=== PATIENT | female | born 1990 | race Caucasian/White ===

== ENCOUNTER 2017-10-24 11:23 | Outpatient (CLI) | payer BC, OTHER ==
--- NOTE | 2017-10-27 09:19 | Ultrasound Report ---
THYROID ULTRASOUND: 10/24/2017 COMPARISON: No comparison. INDICATION: Hypothyroidism. TECHNIQUE: Real-time scanning of the thyroid was performed with tax compliance representative static images obtained. FINDINGS Right lobe: 6.7 x 2.4 x 2.0 cm. Volume 17 mL. Solid nodule of the upper pole 1.4 x 1.3 x 0.9 cm. Right lobe is hyperemic and heterogeneous. Left lobe: 5.5 x 3.7 x 2.2 cm. Volume 23 mL. Superior pole 1.2 cm solid nodule. Mid-lobe mixed solid cystic nodule 2.3 x 2.1 x 1.8 cm. Lower pole 1.7 cm solid nodule highly vascular. Left lobe is heterogeneous and hyperemic. Isthmus: 1.3 cm and heterogeneous. IMPRESSION 1. THE THYROID IS GROSSLY HETEROGENEOUS AND HYPEREMIC SUGGESTING THYROIDITIS. 2. THERE ARE SEVERAL THYROID NODULES WITH THE LARGEST IN THE LEFT MID LOBE MEASURING UP TO 2.3 CM. TD: 10/27/2017 09:18 JAKE
== END 2017-10-24 11:24 | disposition home or self-care (01) ==
LOC: DI 11:23
PROVIDERS: ATTEND Family Medicine
DX: E04.2 Nontoxic multinodular goiter (principal)
CPT/HCPCS: 76536

== ENCOUNTER 2018-09-24 20:19 | Emergency (ER) | payer OTHER ==
--- NOTE | 2018-09-24 20:51 | ED Physician Documentation ---
PD HPI ABD PAIN - Stated complaint Stated Complaint: POSS MISCARRIAGE - Chief complaint Chief Complaint: Abd Pain - History obtained from History obtained from: Patient - History of Present Illness Timing - onset: Other (This is a at 12 weeks gestation who was having spotting and went attrition on Tuesday for same and was diagnosed with intrauterine demise. She is actually scheduled for a D&C on Tuesday but tonight has had heavy bleeding over the last 3 hours without weakness or lightheadedness. She did pass what she thought was products of conception which what looks like a gestational sac, did not bring it with her to the emergency department.) Review of Systems Constitutional: denies: Fever, Chills Cardiac: denies: Chest pain / pressure, Palpitations Respiratory: denies: Dyspnea, Cough PD PAST MEDICAL HISTORY - Allergies Allergies/Adverse Reactions: Allergies Allergy/AdvReac Type Severity Reaction Status Date / Time No Known Drug Allergies Allergy Verified 09/24/18 20:24 PD ED PE NORMAL - Vitals Vital signs reviewed: Yes - General General: Alert and oriented X 3, No acute distress - Abdomen Abdomen: Normal bowel sounds, Soft, Non tender - Female Female : Merchandise Associate present (Sofie Michelle RN), Other (There is a significant amount of material probably the placenta retained in the cervix which was removed during exam.) - Back Back: No CVA TTP, No spinal TTP - Neuro Neuro: Alert and oriented X 3, Normal speech Results - Vitals Vitals: Vital Signs - 24 hr 09/24/18 09/24/18 20:22 22:07 Temperature 35.6 C L 36.8 C Heart Rate 109 H 88 Respiratory 20 18 Rate Blood Pressure 134/88 H 115/68 O2 Saturation 100 98 Oxygen O2 Source Room air - Labs Labs: Laboratory Tests 09/24/18 09/24/18 09/24/18 21:05 21:05 21:05 WBC 14.7 H RBC 4.59 Hgb 13.0 Hct 41.5 MCV 90.4 MCH 28.4 MCHC 31.4 L RDW 14.2 Plt Count 273 MPV 10.1 Neut # (Auto) 10.0 H Lymph # (Auto) 3.6 H Collin # (Auto) 0.9 Eos # (Auto) 0.2 Baso # (Auto) 0.1 Absolute Nucleated RBC 0.00 Nucleated RBC % 0.0 Serum HCG, Qual POSITIVE HCG, Quant 465.34 PD MEDICAL DECISION MAKING - ED course ED course: After removal of the remainder of products of conception during pelvic examination her bleeding got much less. Departure - Departure Disposition: 01 Home, Self Care Clinical Impression: Miscarriage Condition: Good Record reviewed to determine appropriate education?: Yes Instructions: ED Miscarriage Completed Comments: Talk with your OB tomorrow and return if worse. Your OB may want to know your beta HCg value which was 465 tonight.
[2018-09-24 21:14] LABS: BASOPHILS # (AUTO) 0.1 10^3/uL (0.0-0.1); BASOPHILS % (AUTO) 0.4 %; EOSINOPHILS # (AUTO) 0.2 10^3/uL (0.0-0.7); EOSINOPHILS % (AUTO) 1.2 %; LYMPHOCYTES # (AUTO) 3.6 10^3/uL (1.5-3.5); LYMPHOCYTES % (AUTO) 24.5 %; MEAN CORPUSCULAR HEMOGLOBIN 28.4 pg (27.0-31.0); MEAN CORPUSCULAR HGB CONC 31.4 g/dL (32.0-36.0); MEAN CORPUSCULAR VOLUME 90.4 fL (81.0-99.0); MEAN PLATELET VOLUME 10.1 fL (7.9-10.8); MONOCYTES # (AUTO) 0.9 10^3/uL (0.0-1.0); MONOCYTES % (AUTO) 6.2 %; NEUTROPHILS % (AUTO) 67.7 %; PLT - PLATELET COUNT 273 10^3/uL (130-450); RED BLOOD COUNT 4.59 10^6/uL (4.20-5.40); RED CELL DISTRIBUTION WIDTH 14.2 % (12.0-15.0); WHITE BLOOD COUNT 14.7 x10^3/uL (4.8-10.8)
[2018-09-24 21:38] LABS: HCG,QUALITATIVE BLOOD POSITIVE
[2018-09-24 22:08] VITALS: BP 115/68
== END 2018-09-24 22:27 | disposition home or self-care (01) ==
LOC: ED 20:19
DX: O03.9 Complete or unspecified spontaneous abortion without complication (principal)
CPT/HCPCS: 36415; 84702; 84703; 85025; 99283

== ENCOUNTER 2019-06-22 14:30 | Emergency (ER) | payer OTHER ==
[2019-06-22 14:57] LABS: BILIRUBIN,URINE NEGATIVE (NEGATIVE); GLUCOSE, URINE (UA) NEGATIVE (NEGATIVE); KETONES,URINE (UA) NEGATIVE (NEGATIVE); LEUKOCYTE ESTERASE, URINE SMALL (NEGATIVE); NITRITE,URINE NEGATIVE (NEGATIVE); OCCULT BLOOD,URINE NEGATIVE (NEGATIVE); PROTEIN,URINE NEGATIVE (NEGATIVE); UROBILINOGEN,URINE 0.2 (NORMAL) E.U./dL (NORMAL)
[2019-06-22 15:06] LABS: BASOPHILS # (AUTO) 0.1 10^3/uL (0.0-0.1); BASOPHILS % (AUTO) 0.3 %; EOSINOPHILS # (AUTO) 0.1 10^3/uL (0.0-0.7); EOSINOPHILS % (AUTO) 0.8 %; HGB - HEMOGLOBIN 13.1 g/dL (12.0-16.0); LYMPHOCYTES # (AUTO) 2.3 10^3/uL (1.5-3.5); LYMPHOCYTES % (AUTO) 15.2 %; MEAN CORPUSCULAR HEMOGLOBIN 29.4 pg (27.0-31.0); MEAN CORPUSCULAR HGB CONC 32.8 g/dL (32.0-36.0); MEAN CORPUSCULAR VOLUME 89.5 fL (81.0-99.0); MEAN PLATELET VOLUME 11.5 fL (7.9-10.8); MONOCYTES # (AUTO) 0.9 10^3/uL (0.0-1.0); MONOCYTES % (AUTO) 5.7 %; NEUTROPHILS # (AUTO) 11.4 10^3/uL (1.5-6.6); PLT - PLATELET COUNT 241 10^3/uL (130-450); RED BLOOD COUNT 4.46 10^6/uL (4.20-5.40); RED CELL DISTRIBUTION WIDTH 14.3 % (12.0-15.0); WHITE BLOOD COUNT 14.8 x10^3/uL (4.8-10.8)
[2019-06-22 15:08] LABS: AMORPHOUS SEDIMENT,UR Rare /LPF; BACTERIA,URINE None Seen /HPF (None Seen); CLARITY,URINE SL. CLOUDY (CLEAR); RBC,URINE 0-5 /HPF (0-5); SQUAMOUS EPITHELIAL CELL,UR MOD Squamous (<= Few)
[2019-06-22 15:19] LABS: ALBUMIN 3.5 g/dL (3.2-5.5); ALBUMIN/GLOBULIN RATIO 0.9 (1.0-2.2); BILIRUBIN,TOTAL 0.2 mg/dL (0.2-1.0); CALCIUM 9.4 mg/dL (8.5-10.3); CREATININE 0.5 mg/dL (0.4-1.0); TOTAL PROTEIN 7.5 g/dL (6.7-8.2)
--- NOTE | 2019-06-22 16:31 | ED Physician Documentation ---
History of Present Illness - Stated complaint Stated Complaint: ABD/CP PAIN, HIGH BP - Chief complaint Chief Complaint: Abd Pain - Additonal information Additional information: This is a 29-year-old female who is 30 weeks who presents with some epigastric and left upper quadrant discomfort. Patient states that she has had this for the last 1 to 2 days, started when she was eating breakfast. She describes it as sharp and intermittent. She has not had any nausea or vomiting, no dysuria, no lower abdominal cramping, no chest pain, no shortness of breath, no history of blood clots. She denies leg swelling. She has not taken any antacids for this, she states it feels different than her typical GERD. 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 : None HEENT: None Psych: None Musculoskeletal: None Derm: None - Past Surgical History Past Surgical History: No - Allergies Allergies/Adverse Reactions: Allergies Allergy/AdvReac Type Severity Reaction Status Date / Time No Known Drug Allergies Allergy Verified 06/22/19 14:39 - Social History Does the pt smoke?: No Smoking Status: Never smoker Does the pt drink ETOH?: No Does the pt have substance abuse?: No - Immunizations Immunizations are current?: Yes - POLST Patient has POLST: No PD ED PE NORMAL - Vitals Vital signs reviewed: Yes - General General: Alert and oriented X 3, No acute distress - HEENT HEENT: PERRL - Neck Neck: Supple, no meningeal sign - Cardiac Cardiac: RRR - Respiratory Respiratory: Clear bilaterally - Abdomen Abdomen: Soft, Non tender, Other (Gravid. No right upper quadrant tenderness, no epigastric tenderness, entire abdomen is nontender) - Derm Derm: Warm and dry - Extremities Extremities: No deformity - Neuro Neuro: Alert and oriented X 3 - Psych Psych: Normal mood, Normal affect Results - Vitals Vitals: Oxygen O2 Source Room air - EKG (time done) 17:03 Other comments: Other comments (Rate 67, rhythm sinus, there is no ST segment elevation or depression, no abnormal T wave inversion, intervals within normal limits) - Labs Labs: Laboratory Tests 06/22/19 06/22/19 06/22/19 14:50 15:00 15:00 WBC 14.8 H RBC 4.46 Hgb 13.1 Hct 39.9 MCV 89.5 MCH 29.4 MCHC 32.8 RDW 14.3 Plt Count 241 MPV 11.5 H Neut # (Auto) 11.4 H Lymph # (Auto) 2.3 [place] # (Auto) 0.9 Eos # (Auto) 0.1 Baso # (Auto) 0.1 Absolute Nucleated RBC 0.00 Nucleated RBC % 0.0 Sodium 136 Potassium 3.9 Chloride 105 Carbon Dioxide 22 Anion Gap 9.0 BUN 9 Creatinine 0.5 Estimated GFR (MDRD) 146 Glucose 92 Calcium 9.4 Total Bilirubin 0.2 AST 18 ALT 19 Alkaline Phosphatase 80 Total Protein 7.5 Albumin 3.5 Globulin 4.0 Albumin/Globulin Ratio 0.9 L Lipase 32 Urine Color YELLOW Urine Clarity SL. CLOUDY Urine pH 7.0 Ur Specific [place] 1.010 Urine Protein NEGATIVE Urine Glucose (UA) NEGATIVE Urine Ketones NEGATIVE Urine Occult Blood NEGATIVE Urine Nitrite NEGATIVE Urine Bilirubin NEGATIVE Urine Urobilinogen 0.2 (NORMAL) Ur Leukocyte Esterase SMALL H Urine RBC 0-5 Urine WBC 4-5 Ur Squamous Epith Cells MOD Squamous H Amorphous Sediment Rare Urine Bacteria None Seen Ur Microscopic Review INDICATED Urine Culture Comments NOT INDICATED PD MEDICAL DECISION MAKING - ED course Complexity details: considered differential (Gastritis, GERD, ACS, dysrhtymia, PUD, biliary pathology, pancreatitis) ED course: Pt is very well appearing on exam. EKG without signs of ischemia or dysrhytmia and she does not have strong cardiac risk factors. Her history is more consistent with abdominal process and ACS/cardiac cause extremely unlikely. Labs show a mild leukocytosis which is not abnormal for . Abdominal panel unrevealing, UA negative for infection. On reassessment patient is feeling well, continues to have a benign abdominal exam. I doubt biliary pathology given no RUQ tenderness and normal LFTs. I discussed options for further work up, using shared decision making we decided to try treatment for potential GERD/gastritis and close observation and follow up with her OB and return to the ED with worsening. Pt was discharged home in good condition. Departure - Departure Disposition: 01 Home, Self Care Clinical Impression: Epigastric pain Condition: Good Instructions: ED Epigastric Pain [facility] Follow-Up: Shar Campbell MD [Primary Care Provider] - Within 1 week Comments: Your labs are reassuring today, your white blood cell count is a little bit high, but this is typical during . We do not see signs of inflammation of your gallbladder, and your EKG was reassuring. If you are having worsening symptoms, vomiting, fever, or any other concerning symptoms, please return to the emergency department. Otherwise please follow-up with your OB and primary care provider as soon as possible. You may use Tylenol for discomfort and try antacids to see if this helps with potential gastritis or GERD. Discharge Date/Time: 06/22/19 17:14
[2019-06-22 16:47] VITALS: BP 136/81
[2019-06-22] MEDS ORDERED: MAG HYDROX/AL HYDROX/SIMETH 30 ML UDC PO STA (16:52)
== END 2019-06-22 17:14 | disposition home or self-care (01) ==
LOC: ED 14:30
DX: O99.89 Other specified diseases and conditions complicating pregnancy, childbirth and the puerperium (principal); R10.13 Epigastric pain; Z3A.30 30 weeks gestation of pregnancy
CPT/HCPCS: 36415; 59025; 80053; 81001; 83690; 85025; 93005; 99281; 99283; A9270; 81003; 87086

== ENCOUNTER 2019-06-22 17:27 | Outpatient (CLI) | payer OTHER ==
[2019-06-22 17:35] VITALS: BP 118/64
--- NOTE | 2019-07-06 10:23 | PROCEDURE REPORT ---
- HPI Diagnosis/Indication for NST: Other (upper abdominal Pain. Seen and evaluated by ED physician and evaluated) Current EDU 08/31/19 Gestation 30 Weeks and 0 Days 3 Para 1 Vital Signs Temperature 36.7 C 06/22/19 17:34 Heart Rate 81 06/22/19 17:34 Respiratory Rate 18 06/22/19 17:34 Blood Pressure 118/64 06/22/19 17:34 O2 Saturation 100 06/22/19 17:34 Temperature 36.7 C 06/22/19 17:34 Heart Rate 81 06/22/19 17:34 Respiratory Rate 18 06/22/19 17:34 Blood Pressure 118/64 06/22/19 17:34 O2 Saturation 100 06/22/19 17:34 - NST Procedure NST Procedure Start Date 06/22/19 Start Time 17:19 Stop Time 18:49 Vibroacoustic Stimulation Used No Patient States Movement Yes lota of movement. strip without decelerations and reactive - Results and Plan Findings/Impression: nonobstetric upper abdominal pain. reactive NST Plan: Continue OB visits
== END 2019-06-22 18:50 | disposition home or self-care (01) ==
LOC: WFO 17:27 → FBP 17:28 → WFO 18:50
PROVIDERS: ATTEND Obstetrics & Gynecology
DX: O99.89 Other specified diseases and conditions complicating pregnancy, childbirth and the puerperium (principal); R10.10 Upper abdominal pain, unspecified; Z3A.30 30 weeks gestation of pregnancy
CPT/HCPCS: 59025

== ENCOUNTER 2021-11-02 20:47 | Outpatient (CLI) | payer OTHER ==
--- NOTE | 2021-11-03 09:54 | XRAY Report ---
PROCEDURE: Hand 2 View BILAT INDICATIONS: THUMB PAIN TECHNIQUE: 2 views of the bilateral hand(s) acquired. COMPARISON: None. FINDINGS: BONES: No acute, displaced fracture or dislocation. The carpal bones are normally aligned. No evidenc e of erosive change. SOFT TISSUES: No focal abnormality. IMPRESSION: 1.No acute osseous abnormality. Reviewed by: Mata Arellano MD on 11/03/2021 9:52 AM PDT Approved by: Mata Arellano MD on 11/03/2021 9:52 AM PDT Station ID: [id number]
--- NOTE | 2021-11-03 12:06 | Ultrasound Report ---
PROCEDURE: Pelvic w/Transvaginal INDICATIONS: PELVIC PAIN, THUMB PAIN TECHNIQUE: Real-time scanning was performed of the pelvic organs, with image documentation. Additional endovagi nal scanning was necessary due to incomplete visualization of the adnexal and endometrial structures by transabdominal scanning. COMPARISON: None. FINDINGS: Transabdominal scanning: Limited scanning through the kidneys shows no hydronephrosis. No pathologi c free abdominal or pelvic fluid. Endovaginal scanning: Uterus: Uterine body measures 5.9 x 7.6 x 10.2 cm. The endometrium measures 11 mm in combined thickn ess. No uterine mass. Heterogenous uterine echotexture. Ovaries: Right ovary measures 2.4 x 4.8 x 5.5 cm. Thick walled right ovarian cyst measuring 1.7 x 1. 8 x 2.0 cm without features of internal complexity or vascular/solid component identified. Left ovary unremarkable measuring 1.2 x 4.0 x 5.6 cm. Multiple bilateral ovarian follicles present. IMPRESSION: Heterogenous uterine echotexture with mild uterine enlargement. Findings could represent adenomyosis. Numerous subcentimeter follicles at the periphery of both ovaries, with at least 7 identified in each ovary. Findings raise concern for diagnosis of PCOS, but the number of follicles is insufficient to make this diagnosis definitively. Reviewed by: Rick Ward MD on 11/03/2021 12:04 PM PDT Approved by: Rick Ward MD on 11/03/2021 12:04 PM PDT Station ID: [id number]
== END 2021-11-02 20:48 | disposition home or self-care (01) ==
LOC: DI 20:47
PROVIDERS: ATTEND Nurse Practitioner Family
DX: R10.2 Pelvic and perineal pain (principal); N85.2 Hypertrophy of uterus; R93.89 Abnormal findings on diagnostic imaging of other specified body structures; M79.644 Pain in right finger(s); M79.645 Pain in left finger(s)

== ENCOUNTER 2022-01-26 10:35 | Outpatient (CLI) | payer OTHER | END 2022-01-26 10:36 | disposition home or self-care (01) | LOC: LAB 10:35 | PROVIDERS: ATTEND Nurse Practitioner Family | DX: E03.9 Hypothyroidism, unspecified (principal) | CPT/HCPCS: 36415; 84443 ==

== ENCOUNTER 2022-04-14 14:57 | Outpatient (CLI) | payer OTHER ==
[2022-04-14 15:39] LABS: THYROID STIMULATING HORMONE 3.77 uIU/mL (0.34-5.60)
[2022-04-14 15:41] LABS: FREE T3 3.45 pg/mL (2.5-3.9)
== END 2022-04-14 14:58 | disposition home or self-care (01) ==
LOC: LAB 14:57
PROVIDERS: ATTEND Nurse Practitioner Family
DX: E03.9 Hypothyroidism, unspecified (principal)
CPT/HCPCS: 36415; 84443; 84481

== ENCOUNTER 2023-01-24 21:09 | Outpatient (CLI) | payer OTHER ==
--- NOTE | 2023-01-25 10:22 | Ultrasound Report ---
PROCEDURE: Head or Neck Soft Tissue INDICATIONS: THYROID NODULE TECHNIQUE: Real-time scanning was performed of the thyroid gland, with image documentation. COMPARISON: 03/29/2022 FINDINGS: Right: Thyroid lobe measures 5.8 x 2.4 x 2.7 cm, and is homogeneous in echotexture. Left: Thyroid lobe measures 5.8 x 2 x 2.7 cm, and is homogenous in echotexture. Isthmus: 10 mm thick. Nodule number: One Location: Isthmus Size: 0.8 x 0.9 x 1.5 cm. Stable Solid and hypoechoic. Irregular margins. TI RADS 4. Nodule number: Two Location: Right superior Size: 1.3 x 0.8 x 1 cm. Stable Solid and hypoechoic with irregular margins. TI RADS 4. Nodule number: Three Location: Right inferior Size: 1.9 x 0.9 x 1.6 cm. Stable Solid and isoechoic with smooth margins. TI RADS 3 Nodule number: Four Location: Left superior Size: 1.4 x 1.6 x 1 cm. Stable Composition: Solid cystic. Hypoechoic solid portions. TI RADS 4 Nodule number: 5 Location: Left lateral Size: 1.8 x 1.5 x 1.3 cm. Stable Composition: Solid, hyperechoic. Smooth margins. TI RADS 3 Nodule number: 6 Location: Left inferior Size: 1.7 x 1.5 x 1.2 cm. Enlarged from prior Composition: Solid, hyperechoic. Smooth margins. TI RADS 3 IMPRESSION: Enlarged nodule #6 in the left inferior region. Other nodules are stable. Consensus breana mmendations below. ACR TI-RADS definitions and recommendations: TI-RADS 1 (benign): 0 points. FNA not needed. TI-RADS 2 (not suspicious): 2 points. FNA not needed. TI-RADS 3 (mildly suspicious): 3 points. "FNA if 2.5 cm or larger, follow up if 1.5 cm or larger (at 1, 3, and 5 years). TI-RADS 4 (moderately suspicious): 4-6 points. "FNA if 1.5 cm or larger, follow up if 1 cm or larger (at 1, 2, 3, and 5 years). TI-RADS 5 (highly suspicious): 7 points or more. "FNA if 1 cm or larger, follow up if 0.5 cm or larger (every year for 5 years). Reviewed by: Abel Celeste MD on 01/25/2023 10:21 AM PDT Approved by: Abel Celeste MD on 01/25/2023 10:21 AM PDT Station ID: [id number]
== END 2023-01-24 21:10 | disposition home or self-care (01) ==
LOC: DI 21:09
PROVIDERS: ATTEND Student in an Organized Health Care Education/Training Program
DX: E04.2 Nontoxic multinodular goiter (principal); E03.9 Hypothyroidism, unspecified
CPT/HCPCS: 36415; 84439; 84443

== ENCOUNTER 2023-01-24 21:12 | Outpatient (CLI) | payer OTHER ==
[2023-01-24 22:03] LABS: THYROID STIMULATING HORMONE 5.82 uIU/mL (0.34-5.60)
[2023-01-24 22:05] LABS: FREE T4 (FREE THYROXINE) 1.09 ng/dL (0.58-1.64)
== END 2023-01-24 21:13 | disposition home or self-care (01) ==
LOC: LAB 21:12
PROVIDERS: ATTEND Registered Nurse
DX: E03.9 Hypothyroidism, unspecified (principal)
CPT/HCPCS: 36415; 84439; 84443

== ENCOUNTER 2023-02-04 16:06 | Outpatient (CLI) | payer OTHER ==
[2023-02-04 16:48] LABS: THYROID STIMULATING HORMONE 3.59 uIU/mL (0.34-5.60)
[2023-02-04 16:50] LABS: FREE T4 (FREE THYROXINE) 0.87 ng/dL (0.58-1.64)
== END 2023-02-04 16:07 | disposition home or self-care (01) ==
LOC: LAB 16:06
PROVIDERS: ATTEND Registered Nurse
DX: E03.9 Hypothyroidism, unspecified (principal)
CPT/HCPCS: 36415; 84439; 84443

== ENCOUNTER 2023-05-27 17:00 | Outpatient (CLI) | payer OTHER ==
[2023-05-27 17:44] LABS: THYROID STIMULATING HORMONE 3.16 uIU/mL (0.34-5.60)
== END 2023-05-27 17:01 | disposition home or self-care (01) ==
LOC: LAB 17:00
PROVIDERS: ATTEND Registered Nurse
DX: E03.9 Hypothyroidism, unspecified (principal)
CPT/HCPCS: 36415; 84439; 84443

== ENCOUNTER 2023-09-27 11:11 | Outpatient (CLI) | payer OTHER ==
[2023-09-27 11:53] LABS: THYROID STIMULATING HORMONE 4.64 uIU/mL (0.34-5.60)
== END 2023-09-27 11:12 | disposition home or self-care (01) ==
LOC: LAB 11:11
PROVIDERS: ATTEND Registered Nurse
DX: E03.9 Hypothyroidism, unspecified (principal)
CPT/HCPCS: 36415; 84439; 84443

== ENCOUNTER 2024-04-09 10:01 | Outpatient (CLI) | payer OTHER ==
--- NOTE | 2024-04-10 17:08 | Ultrasound Report ---
PROCEDURE: Soft Tissue Head or Neck INDICATIONS: THYROID NODULES TECHNIQUE: Real-time scanning was performed of the thyroid gland, with image documentation. COMPARISON: 01/24/2023 FINDINGS: Right: Thyroid lobe measures 5.7 x 2.1 x 2.3 cm. Left: Thyroid lobe measures 5.7 x 2.1 x 2.9 cm Isthmus: 0.7 cm thick. Echotexture: Homogeneous. Nodule number: One Location: Right superior Size: 1.4 x 1.6 x 1.0 cm, previously 1.3 x 0.8 x 1.0 cm. Composition: Solid. Echogenicity: Hypoechoic. Shape: wider than tall (0 points). Margins: Lobulated / Irregular (2 points). Echogenic foci: None (0 points). Total points: 6 ACR TI-RADS category: 4 Nodule number: Two Location: Right inferior Size: 1.1 x 1.7 x 0.9 cm, previously 1.9 x 0.9 x 1.6 cm. Composition: Solid. Echogenicity: Hypoechoic. Shape: wider than tall (0 points). Margins: Smooth (0 points). Echogenic foci: None (0 points). Total points: 4 ACR TI-RADS category: 4 Nodule number: Three Location: Left superior Size: 1.6 x 1.7 x 1.0 cm, previously 1.9 x 1.0 x 1.6 cm. Composition: Mixed cystic and solid (1 point). Echogenicity: Hypoechoic. Shape: wider than tall (0 points). Margins: Smooth (0 points). Echogenic foci: None (0 points). Total points: 3 ACR TI-RADS category: 3 Nodule number: Four Location: Left inferior Size: 2.1 x 1.4 x 2.0 cm, previously 1.7 x 1.5 x 1.2 cm. Composition: Solid. Echogenicity: Hyperechoic. Shape: wider than tall (0 points). Margins: Smooth (0 points). Echogenic foci: None (0 points). Total points: 3 ACR TI-RADS category: 3 IMPRESSION: Multinodular goiter. Advise continued follow-up per ACR schedule below ACR TI-RADS definitions and recommendations: TI-RADS 1 (benign): 0 points. FNA not needed. TI-RADS 2 (not suspicious): 2 points. FNA not needed. TI-RADS 3 (mildly suspicious): 3 points. "FNA if 2.5 cm or larger, follow up if 1.5 cm or larger (at 1, 3, and 5 years). TI-RADS 4 (moderately suspicious): 4-6 points. "FNA if 1.5 cm or larger, follow up if 1 cm or larger (at 1, 2, 3, and 5 years). TI-RADS 5 (highly suspicious): 7 points or more. "FNA if 1 cm or larger, follow up if 0.5 cm or larger (every year for 5 years). Reviewed by: Gato Hodges MD on 04/10/2024 4:06 PM TONO Approved by: Gato Hodges MD on 04/10/2024 4:06 PM TONO Station ID: [id number]
== END 2024-04-09 10:02 | disposition home or self-care (01) ==
LOC: DI 10:01
PROVIDERS: ATTEND Student in an Organized Health Care Education/Training Program
DX: E04.2 Nontoxic multinodular goiter (principal)